=== PATIENT | male | born 1965 | race Caucasian/White ===

== ENCOUNTER 2016-09-01 21:06 | Emergency (ER) | payer SELFPAY ==
[~2016-09-01] VITALS: Ht 167.6 cm; Wt 70.1 kg
[~2016-09-01 21:06] MED LIST: CEPH500C3 PO; HYDR-3534 PO
[2016-09-01 21:09] VITALS: BP 102/70; PULSE 91; RESP 20; TEMP 97.7; O2SAT 95
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
[2016-09-01] MEDS ORDERED: LIDOCAINE 1%/EPINEPHrine 1:100,000 SOLN 20 ML VIAL INFIL ONE (21:30)
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
== END 2016-09-01 22:49 | disposition home or self-care (01) ==
LOC: PHEFT 21:06
DX: S01.411A Laceration without foreign body of right cheek and temporomandibular area, initial encounter (principal); F17.200 Nicotine dependence, unspecified, uncomplicated; Z86.69 Personal history of other diseases of the nervous system and sense organs; Z86.59 Personal history of other mental and behavioral disorders; W25.XXXA Contact with sharp glass, initial encounter
CPT/HCPCS: 12011; 70140

== ENCOUNTER 2016-10-14 14:11 | Emergency (ER) | payer SELFPAY ==
[~2016-10-14] VITALS: Ht 185.4 cm; Wt 75.0 kg
[2016-10-14 16:20] VITALS: BP 113/63; PULSE 77; RESP 16; TEMP 98; O2SAT 99
[2016-10-14 16:34] VITALS: BP 109/68; PULSE 69; RESP 16; O2SAT 98
[2016-10-14] MEDS ORDERED: SODIUM CHLORIDE 0.9% FLUSH 5 ML FLUSH IVF PRN (16:45)
[2016-10-14 17:23] LABS: AUTOMATED NEUTROPHIL # 5.1 TH/MM3 (1.8-7.7); BASOPHIL % 0.3 % (0.0-2.0); EOSINOPHIL % 0.3 % (0.0-4.0); HEMATOCRIT 46.4 % (39.0-51.0); HEMO FLAGS DIFF FINAL; LYMPH % 22.7 % (9.0-44.0); LYMPHOCYTE # 1.6 TH/MM3 (1.0-4.8); MEAN CELL VOLUME 91.4 FL (80.0-100.0); MEAN CORPUSCULAR HEMOGLOBIN 31.8 PG (27.0-34.0); MEAN CORPUSCULAR HGB CONC 34.8 % (32.0-36.0); MONO % 4.9 % (0.0-8.0); NEUT % 71.8 % (16.0-70.0); PLATELET COUNT 292 TH/MM3 (150-450); RED BLOOD COUNT 5.08 MIL/MM3 (4.50-5.90); RED CELL DISTRIBUTION WIDTH 13.6 % (11.6-17.2); WHITE BLOOD COUNT 7.1 TH/MM3 (4.0-11.0)
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
--- NOTE | 2016-10-14 17:32 | RADRPT ---
EXAM DATE/TIME: 10/14/2016 16:35 [facility] COMPARISON: No previous studies available for comparison. INDICATIONS : Chest Pain MEDICAL HISTORY : None. SURGICAL HISTORY : None. ENCOUNTER: Initial ACUITY: 1 day PAIN SCORE: 5/10 LOCATION: Bilateral chest FINDINGS: A single view of the chest demonstrates the lungs to be symmetrically aerated without evidence of mas s, infiltrate or effusion. The cardiomediastinal contours are unremarkable. Osseous structures are intact. CONCLUSION: No acute disease. Brett Medrano MD on October 14, 2016 at 17:30 Board Certified Radiologist. This report was verified electronically.
[2016-10-14 17:38] LABS: APTT (PATIENT) 23.9 SEC (24.3-30.1); PROTHROMBIN TIME - PATIENT 11.4 SEC (9.8-11.6)
[2016-10-14 17:41] LABS: ANION GAP 6 MEQ/L (5-15); BICARBONATE 30.8 MEQ/L (21.0-32.0); BLOOD UREA NITROGEN 11 MG/DL (7-18); CHLORIDE 103 MEQ/L (98-107); GLOMERULAR FILTRATION RATE 78 ML/MIN (>89); MAGNESIUM 2.1 MG/DL (1.5-2.5); POTASSIUM 4.2 MEQ/L (3.5-5.1); SODIUM (NA) 140 MEQ/L (136-145)
[2016-10-14 17:45] LABS: CREATINE KINASE 108 U/L (39-308)
[2016-10-14 17:58] LABS: CKMB 0.6 NG/ML (0.5-3.6)
--- NOTE | 2016-10-14 18:22 | RADRPT ---
EXAM DATE/TIME: 10/14/2016 17:14 [facility] COMPARISON: No previous studies available for comparison. INDICATIONS : Trauma; fall. RADIATION DOSE: 41.13 CTDIvol (mGy) MEDICAL HISTORY : Cerebrovascular disease. Hypertension. SURGICAL HISTORY : None. ENCOUNTER: Initial ACUITY: 1 day PAIN SCALE: 5/10 LOCATION: cranial TECHNIQUE: Multiple contiguous axial images were obtained of the head. Using automated exposure control and adj ustment of the mA and/or kV according to patient size, radiation dose was kept as low as reasonably a chievable to obtain optimal diagnostic quality images. FINDINGS: CEREBRUM: The ventricles are normal for age. No evidence of midline shift, mass lesion, hemorrhage or acute in farction. No extra-axial fluid collections are seen. POSTERIOR FOSSA: The cerebellum and brainstem are intact. The 4th ventricle is midline. The cerebellopontine angle i s unremarkable. EXTRACRANIAL: The visualized portion of the orbits is intact. SKULL: The calvaria is intact. No evidence of skull fracture. CONCLUSION: Normal examination. Brett Medrano MD on October 14, 2016 at 18:19 Board Certified Radiologist. This report was verified electronically.
[2016-10-14] MEDS ORDERED: IOHEXOL 350 MG/ML 10 ML VIAL (for RAD DIAG) IV ONE (18:31)
--- NOTE | 2016-10-14 18:45 | RADRPT ---
EXAM DATE/TIME: 10/14/2016 18:09 [facility] COMPARISON: No previous studies available for comparison. INDICATIONS : Short of breath. IV CONTRAST: 60 cc Omnipaque 350 (iohexol) IV RADIATION DOSE: 6.42 CTDIvol (mGy) MEDICAL HISTORY : Cerebrovascular disease. Hypertension. SURGICAL HISTORY : None. ENCOUNTER: Initial ACUITY: 1 day PAIN SCALE: 4/10 LOCATION: chest TECHNIQUE: Volumetric scanning of the chest was performed using a pulmonary embolism protocol MIP images were re constructed. Using automated exposure control and adjustment of the mA and/or kV according to patien t size, radiation dose was kept as low as reasonably achievable to obtain optimal diagnostic quality images. FINDINGS: PULMONARY ARTERIES: No filling defects are seen in the pulmonary arteries through the segmental level. LUNGS: There is no consolidation or pneumothorax . No concerning pulmonary nodule is visualized. PLEURAE: There is no pleural thickening or pleural effusion. MEDIASTINUM: There is good visualization of the great vessels of the middle mediastinum. No evidence of mediastin al or hilar adenopathy/mass. MUSCULOSKELETAL: Within normal limits for patient age. MISCELLANEOUS: The visualized upper abdominal organs demonstrate no acute abnormality. CONCLUSION: 1. Negative for pulmonary embolus. Mild emphysema. Brett Medrano MD on October 14, 2016 at 18:42 Board Certified Radiologist. This report was verified electronically.
[2016-10-14 18:58] VITALS: BP 105/71
--- NOTE | 2016-10-15 14:31 | EKG ---
Date Performed: 10/14/2016 Time Performed: 16:26:49 PTAGE: 51 years EKG: Sinus rhythm NORMAL ECG PREVIOUS TRACING : 04/02/2008 02.26 DOCTOR: Nikita Soni Interpretating Date/Time 10/15/2016 14:28:22
== END 2016-10-14 19:07 | disposition home or self-care (01) ==
LOC: NEDAMB 14:11 → NEPC 19:07
DX: R55 Syncope and collapse (principal); S01.01XA Laceration without foreign body of scalp, initial encounter; R07.9 Chest pain, unspecified; F17.210 Nicotine dependence, cigarettes, uncomplicated; Z86.73 Personal history of transient ischemic attack (TIA), and cerebral infarction without residual deficits
CPT/HCPCS: 12002; 70450; 71010; 71275; 80048; 82550; 82552; 83735; 84484; 85025; 85379; 85610; 85730; 93005; 99285; Q9967

== ENCOUNTER 2017-02-11 10:55 | Emergency (ER) | payer SELFPAY ==
[~2017-02-11] VITALS: Ht 185.4 cm; Wt 80.0 kg
[2017-02-11 10:59] VITALS: BP 119/62; PULSE 104; RESP 16; TEMP 98.2; O2SAT 99
[2017-02-11 11:10] VITALS: BP 110/77; PULSE 86; RESP 16; O2SAT 98
[2017-02-11] MEDS ORDERED: LIDOCAINE HCL 1% 50 ML VIAL INFIL ONE (11:15)
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
[2017-02-11] MEDS ORDERED: IBUP-232 PO (11:35)
[2017-02-11] MEDS ORDERED: FLUT1SPR5 EACH NARE (11:35)
[2017-02-11] MEDS ORDERED: AUGM875T3 PO (11:35)
== END 2017-02-11 12:43 | disposition home or self-care (01) ==
LOC: NEPD 10:55
DX: S81.811A Laceration without foreign body, right lower leg, initial encounter (principal); Z86.73 Personal history of transient ischemic attack (TIA), and cerebral infarction without residual deficits; F17.210 Nicotine dependence, cigarettes, uncomplicated; W26.9XXA Contact with unspecified sharp object(s), initial encounter; Y93.9 Activity, unspecified; Y92.007 Garden or yard of unspecified non-institutional (private) residence as the place of occurrence of the external cause; Y99.8 Other external cause status
CPT/HCPCS: 12002

== ENCOUNTER 2017-02-18 02:52 | Emergency (ER) | payer SELFPAY ==
[~2017-02-18] VITALS: Ht 185.4 cm; Wt 79.0 kg
[2017-02-18 02:56] VITALS: BP 113/71; PULSE 90; RESP 16; TEMP 97.6; O2SAT 98
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
[2017-02-18] MEDS ORDERED: CEPHALEXIN MONOHYDRATE 500 MG CAP PO ONE (04:45)
[2017-02-18] MEDS ORDERED: BACT800T5 PO (05:22)
[2017-02-18] MEDS ORDERED: CEPH-460 PO (05:22)
== END 2017-02-18 05:35 | disposition home or self-care (01) ==
LOC: NEPC 02:52
DX: T81.4XXA Infection following a procedure, initial encounter (principal); F41.9 Anxiety disorder, unspecified; F17.200 Nicotine dependence, unspecified, uncomplicated; Z86.73 Personal history of transient ischemic attack (TIA), and cerebral infarction without residual deficits
CPT/HCPCS: 99284

== ENCOUNTER 2017-02-19 07:15 | Emergency (ER) | payer SELFPAY ==
[~2017-02-19] VITALS: Ht 185.4 cm; Wt 78.0 kg
[~2017-02-19 07:15] MED LIST changes: +BACT800T5 PO; +CEPH-460 PO; -CEPH500C3 PO; -HYDR-3534 PO
[2017-02-19 07:16] VITALS: BP 125/75; PULSE 75; RESP 15; TEMP 98.3; O2SAT 98
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
== END 2017-02-19 07:55 | disposition home or self-care (01) ==
LOC: NEPE 07:15
DX: S81.811D Laceration without foreign body, right lower leg, subsequent encounter (principal); W26.9XXD Contact with unspecified sharp object(s), subsequent encounter; Y92.007 Garden or yard of unspecified non-institutional (private) residence as the place of occurrence of the external cause
CPT/HCPCS: 99281

== ENCOUNTER 2017-05-22 14:26 | Emergency (ER) | payer SELFPAY ==
[~2017-05-22] VITALS: Ht 185.4 cm; Wt 65.9 kg
[2017-05-22 14:28] VITALS: BP 120/67; PULSE 103; RESP 15; TEMP 98.5; O2SAT 96
[2017-05-22] MEDS ORDERED: LIDOCAINE HCL 1% 50 ML VIAL INFIL ONE (14:45)
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
== END 2017-05-22 15:24 | disposition home or self-care (01) ==
LOC: PHEFT 14:26
DX: S61.412A Laceration without foreign body of left hand, initial encounter (principal); W26.9XXA Contact with unspecified sharp object(s), initial encounter; Y99.0 Civilian activity done for income or pay; Z86.73 Personal history of transient ischemic attack (TIA), and cerebral infarction without residual deficits; H91.90 Unspecified hearing loss, unspecified ear; F17.210 Nicotine dependence, cigarettes, uncomplicated
CPT/HCPCS: 12002

== ENCOUNTER 2017-09-25 08:58 | Emergency (ER) | payer SELFPAY ==
[~2017-09-25] VITALS: Ht 185.4 cm; Wt 70.0 kg
[2017-09-25 09:02] VITALS: BP 102/52; PULSE 85; RESP 16; TEMP 98.5; O2SAT 98
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
[2017-09-25] MEDS ORDERED: cefTRIAXone INJ 1,000 MG in SODIUM CHLORIDE 0.9% INJ 100 ML IV ONE (09:30)
[2017-09-25] MEDS ORDERED: SODIUM CHLORIDE 0.9% FLUSH 10 ML FLUSH IVF PRN (09:30)
[2017-09-25] MEDS ORDERED: KETOROLAC TROMETHAMINE 30 MG/ML (IVP) VIAL IVP ONE (09:30)
[2017-09-25 09:55] LABS: BILIRUBIN, URINE NEG (NEG); BLOOD, URINE NEG (NEG); GLUCOSE,URINE NEG (NEG); KETONE, URINE NEG (NEG); NITRITE,URINE NEG (NEG); PH, URINE 5.5 (5.0-8.5); URINE LEUKOCYTE ESTERASE NEG (NEG)
[2017-09-25 09:56] LABS: AUTOMATED NEUTROPHIL # 8.8 TH/MM3 (1.8-7.7); BASOPHIL % 0.3 % (0.0-2.0); EOSINOPHIL % 0.4 % (0.0-4.0); HEMATOCRIT 40.5 % (39.0-51.0); HEMOGLOBIN 13.5 GM/DL (13.0-17.0); LYMPH % 12.1 % (9.0-44.0); LYMPHOCYTE # 1.3 TH/MM3 (1.0-4.8); MEAN CELL VOLUME 92.6 FL (80.0-100.0); MEAN CORPUSCULAR HEMOGLOBIN 30.8 PG (27.0-34.0); MEAN CORPUSCULAR HGB CONC 33.3 % (32.0-36.0); MEAN PLATELET VOLUME 6.2 FL (7.0-11.0); MONO % 5.8 % (0.0-8.0); MONOCYTE # 0.6 TH/MM3 (0-0.9); NEUT % 81.4 % (16.0-70.0); PLATELET COUNT 284 TH/MM3 (150-450); RED BLOOD COUNT 4.37 MIL/MM3 (4.50-5.90); WHITE BLOOD COUNT 10.6 TH/MM3 (4.0-11.0)
[2017-09-25 09:59] VITALS: BP 104/59; PULSE 71; RESP 17; O2SAT 97
[2017-09-25] MEDS ORDERED: SODIUM CHLOR 0.9% 1000 ML INJ 1,000 ML IV ONE (10:00)
[2017-09-25 10:07] LABS: BICARBONATE 28.2 MEQ/L (21.0-32.0); CALCIUM 8.7 MG/DL (8.5-10.1)
[2017-09-25 10:09] LABS: AMORPHOUS SEDIMENT, URINE FEW; SQUAMOUS EPITHELIAL CELL URINE 0-5 /hpf (0-5); URINE COLOR YELLOW (YELLW/STRAW)
[2017-09-25 10:11] LABS: CREATININE 0.89 MG/DL (0.60-1.30)
--- NOTE | 2017-09-25 10:11 | RADRPT ---
EXAM DATE/TIME: 09/25/2017 09:33 [place] COMPARISON: No previous studies available for comparison. INDICATIONS : Right testicular pain. MEDICAL HISTORY : Traumatic head injury. CVA. Tobacco use. Anxiety. SURGICAL HISTORY : Left thumb surgery. Right hand tendon repair. ENCOUNTER: Initial ACUITY: 2 weeks PAIN SCORE: 10/10 LOCATION: Bilateral scrotum. MEASUREMENTS: RIGHT TESTICLE: 4.0 x 3.2 x 2.9cm LEFT TESTICLE: 4.4 x 2.8 x 2.7cm FINDINGS: RIGHT TESTICLE: Homogeneous echotexture without intra or extratesticular mass. There is increased blood flow and hype remia to the right testicle compared to the left. No hydrocele, there are small varices. Epididymis is within normal limits. LEFT TESTICLE: Homogeneous echotexture without intra or extratesticular mass. The blood flow is less than on the lef t but felt to be within normal limits. No hydrocele.Epididymis is within normal limits. There are sm all varices. SCROTUM: Within normal limits. CONCLUSION: 1. There is asymmetric increased blood flow to the right testicle compared to the left with no focal abnormality. This is consistent with hyperemia and could be secondary to infection or inflammatory ch paresh. 2. Small bilateral varices. Jhony Park MD on September 25, 2017 at 10:01 Board Certified Radiologist. This report was verified electronically.
[2017-09-25] MEDS ORDERED: TRAM50 PO (10:26)
[2017-09-25] MEDS ORDERED: DOXY100C PO (10:26)
[2017-09-25 10:31] VITALS: BP 102/57; PULSE 66; RESP 16; O2SAT 97
[2017-09-25] MEDS ORDERED: diphenhydrAMINE HCL 50 MG/ML VIAL IV PUSH ONE (11:00)
[2017-09-25] MEDS ORDERED: CIPR-9 PO (11:58)
== END 2017-09-25 11:25 | disposition home or self-care (01) ==
LOC: PHED 08:58
DX: N45.1 Epididymitis (principal); N50.811 Right testicular pain; F17.200 Nicotine dependence, unspecified, uncomplicated
CPT/HCPCS: 76870; 80048; 81001; 85025; 87491; 87591; 93975; 96365; 96375; 99284; J0696; J1200; J1885; J7030

== ENCOUNTER 2018-02-18 16:06 | Emergency (ER) | payer SELFPAY ==
[~2018-02-18] VITALS: Ht 185.4 cm; Wt 75.0 kg
[~2018-02-18 16:06] MED LIST changes: -BACT800T5 PO; -CEPH-460 PO; +CIPR-9 PO; +DOXY100C PO; +TRAM50 PO
[2018-02-18 16:10] VITALS: BP 110/52; PULSE 94; RESP 16; TEMP 98.6; O2SAT 96
--- NOTE | 2018-02-18 16:51 | RADRPT ---
EXAM DATE: 02/18/2018 4:45 PM EDT AGE/SEX: 52 years / Male INDICATIONS: Swelling in right knee, possible infection. CLINICAL DATA: This is the patient's initial encounter. Patient reports that signs and symptoms have been present for 1 day and indicates a pain score of 8/10. MEDICAL/SURGICAL HISTORY: None. None. COMPARISON: No prior exams available for comparison. FINDINGS: Bony structures are intact and in normal alignment. Joints are intact without dislocation or signifi cant arthropathy. Osseous density is normal. Prominent infrapatellar soft tissues. No radiopaque for eign bodies seen. CONCLUSION: 1. Prominent infrapatellar soft tissues without radiopaque foreign bodies or subcutaneous emphysema. 2. No erosive bony change or acute fracture. Electronically signed by: Jalen Cheema MD 02/18/2018 4:50 PM EDT
[2018-02-18] MEDS ORDERED: LIDOCAINE 1%/EPINEPHrine 1:100,000 SOLN 30 ML VIAL ONE (19:09)
[2018-02-18] MEDS ORDERED: SULFAMETHOXAZOLE-TRIMETHOPRIM DS 800-160 MG TAB PO ONE (19:15)
[2018-02-18] MEDS ORDERED: LIDOCAINE 1%/EPINEPHrine 1:100,000 SOLN 20 ML VIAL INFIL ONE (19:15)
[2018-02-18] MEDS ORDERED: ACETAMINOPHEN/HYDROcodone 325 MG/5 MG TAB PO ONE (19:15)
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
[2018-02-18] MEDS ORDERED: IBUP-232 PO (21:10)
[2018-02-18] MEDS ORDERED: BACT800T5 PO (21:10)
== END 2018-02-18 22:00 | disposition home or self-care (01) ==
LOC: NEPE 16:06
DX: L02.415 Cutaneous abscess of right lower limb (principal); B95.62 Methicillin resistant Staphylococcus aureus infection as the cause of diseases classified elsewhere; W01.0XXA Fall on same level from slipping, tripping and stumbling without subsequent striking against object, initial encounter; F41.9 Anxiety disorder, unspecified; F17.210 Nicotine dependence, cigarettes, uncomplicated; Z86.73 Personal history of transient ischemic attack (TIA), and cerebral infarction without residual deficits; Z88.1 Allergy status to other antibiotic agents; Z88.5 Allergy status to narcotic agent
CPT/HCPCS: 10060; 73564; 86403; 87070; 87186; 87205

== ENCOUNTER 2018-04-08 10:34 | Inpatient (IN) ==
--- NOTE | 2018-04-08 11:22 | ED ---
HPI General Chief complaint: Skin/Abscess/Foreign Body Stated complaint: right hand swollen Time Seen by Provider: 04/08/18 11:00 Source: patient Mode of arrival: ambulatory Limitations: no limitations History of Present Illness HPI narrative: Patient is a 52-year-old male presenting to the emergency department for evaluation of right hand pain and swelling. Patient states it started 3 days ago, he reports his pain is a 10 out of 10, constant, aching and throbbing in nature. He reports subjective fevers but denies any nausea, vomiting, chest pain, shortness of breath. Patient denies any IV drug use. He states his tetanus vaccine is up-to-date. Symptom onset was gradual, symptoms are moderate in nature. No alleviating factors. Pain is worse with movement and palpation. MD complaint: abscess/boil and discoloration Onset (ago): day(s) (3) Tetanus Immunization: <5 Years Location: R hand Severity: severe Severity scale (1-10): >10 Quality: aching and constant Pain Consistency: constant Relieving factors: none Exacerbating factors: palpation and movement Context: none Associated symptoms: fever, chills, arthralgias and myalgias Treatments prior to arrival: none Related Data Home Medications Medication Instructions Recorded Confirmed No Known Home Medications 04/08/18 04/08/18 Allergies Allergy/AdvReac Type Severity Reaction Status Date / Time ceftriaxone Allergy Intermediate Itching Verified 09/25/17 11:25 codeine Allergy Mild ITCH Verified 09/25/17 09:25 aspirin AdvReac Mild HEART Verified 09/25/17 09:25 FLUTTERS Review of Systems ROS: all other systems reviewed are negative [facility] Medical History Medical History Hernia (Acute) Social History Social History Second Hand Smoke Exposure: No Smoking Status: Current every day smoker Tobacco Type: Cigarettes How Often Do You Have a Drink Containing Alcohol: Never Recent Travel in [facility] within the Last 8 Weeks: No Recent Out of Country Travel within the Last 8 Weeks: No Immunization History Tetanus Immunization: <5 Years Exam Narrative Exam Narrative: GENERAL: Thin, well-developed, alert male. Presenting in no acute distress. SKIN: Focused skin assessment warm/dry. Edema and erythema noted to the right hand and wrist on the dorsal aspect, significantly tender to palpation. HEAD: Atraumatic. Normocephalic. EYES: Pupils equal and round. No scleral icterus. No injection or drainage. ENT: No nasal bleeding or discharge. Mucous membranes pink and moist. NECK: Trachea midline. No JVD. CARDIOVASCULAR: Regular rate and rhythm. No murmur appreciated. 2+ radial pulse, brisk less than 3 second capillary refill. RESPIRATORY: No accessory muscle use. Clear to auscultation. Breath sounds equal bilaterally. GASTROINTESTINAL: Abdomen soft, non-tender, nondistended. Hepatic and splenic margins not palpable. MUSCULOSKELETAL: No obvious deformities. No clubbing. No cyanosis. No edema. Pain with passive flexion of fingers radiating to forearm. NEUROLOGICAL: Awake and alert. No obvious cranial nerve deficits. Motor grossly within normal limits. Normal speech. PSYCHIATRIC: Appropriate mood and affect; insight and judgment normal. Course Initial Documented Vital Signs Temperature 98.3 F 04/08/18 10:40 Pulse Rate 112 H 04/08/18 10:40 Respiratory Rate 18 04/08/18 10:40 Blood Pressure 122/59 L 04/08/18 10:40 Pulse Oximetry 98 04/08/18 10:40 Last Documented Vital Signs Temperature 98.3 F 04/08/18 10:40 Pulse Rate 112 H 04/08/18 10:40 Respiratory Rate 18 04/08/18 10:40 Blood Pressure 122/59 L 04/08/18 10:40 Pulse Oximetry 98 04/08/18 10:40 Medical Decision Making MARY Attestation MARY supervised visit: Yes Attestation: I, Dr. Rodriguez, have reviewed the advance practice practitioner's documentation and am in agreement, met with the patient face to face, made the diagnosis, and the medical decision making was done by me. 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 He has physical exam findings concerning for flexor tenosynovitis involving the third finger on the right side. Based on exam there is some concern or suspicion for IV drug abuse. Patient will be admitted for IV antibiotics and hand surgery consultation. Clindamycin started. Plain film reviewed: no sign of subcutaneous air. [facility] Narrative Medical decision making narrative: Patient is a 52-year-old male presented to emerge from for evaluation of right hand pain and swelling. Patient is neurovascularly intact. Labs imaging ordered and pending. Labs reviewed, CRP is elevated at 4.40. X-ray shows diffuse soft tissue swelling. Discussed findings with my attending physician as well as Dr. Sushma Penn, hand surgeon. She requested an MRI be obtained the patient be kept n.p.o. possible OR this afternoon. Orders placed. Patient is agreeable to plan. He was started on clindamycin empirically. Differential Diagnosis Differential Diagnosis: Cellulitis versus abscess versus tenosynovitis versus other Medical Records Medical records reviewed: Yes I reviewed the patient's medical records. Lab Data Lab results reviewed: Yes I reviewed the patient's lab results. Result diagrams: 04/08/18 11:20 04/08/18 11:20 Lab Results 04/08/18 04/08/18 04/08/18 Range/Units 11:20 11:20 11:20 WBC 9.9 (4.0-11.0) th/mm3 RBC 4.23 L (4.50-5.90) mil/mm3 Hgb 13.3 (13.0-17.0) gm/dL Hct 39.3 (39.0-51.0) % MCV 92.9 (80.0-100.0) fL MCH 31.4 (27.0-34.0) pg MCHC 33.8 (32.0-36.0) % RDW 13.7 (11.6-17.2) % Plt Count 278 (150-450) th/mm3 MPV 6.7 L (7.0-11.0) fL Neut % (Auto) 80.6 H (16.0-70.0) % Lymph % (Auto) 12.6 (9.0-44.0) % [place] % (Auto) 6.3 (0.0-8.0) % Eos % (Auto) 0.3 (0.0-4.0) % Baso % (Auto) 0.2 (0.0-2.0) % Neut # (Auto) 8.0 H (1.8-7.7) th/mm3 Lymph # (Auto) 1.3 (1.0-4.8) th/mm3 [place] # (Auto) 0.6 (0.0-0.9) th/mm3 Eos # (Auto) 0.0 (0.0-0.4) th/mm3 Baso # (Auto) 0.0 (0.0-0.2) th/mm3 WBC Differential . Differential Comment Auto diff final ESR 15 (0-20) mm/hr Sodium 140 (136-145) meq/L Potassium 3.7 (3.5-5.1) meq/L Chloride 105 (98-107) meq/L Carbon Dioxide 27.8 (21.0-32.0) meq/L Anion Gap 7 (5-15) meq/L BUN 17 (7-18) mg/dL Creatinine 0.89 (0.60-1.30) mg/dL Estimated GFR Greater than 89 (>89) mL/min Random Glucose 100 (74-106) mg/dL Calcium 8.5 (8.5-10.1) mg/dL Total Bilirubin 0.6 (0.2-1.0) mg/dL AST 14 L (15-37) U/L ALT 15 (12-78) U/L Alkaline Phosphatase 59 (45-117) U/L C-Reactive Protein 4.40 H (0.00-0.30) mg/dL Total Protein 6.6 (6.4-8.2) g/dL Albumin 3.3 L (3.4-5.0) g/dL Imaging Data Radiologist's impression: Hand X-Ray 04/08/18 11:05 CONCLUSION: Soft tissue swelling. No definite acute bony injury. Discharge Plan Discharge Disposition Patient Disposition: 30 Still Patient Discharge Condition Condition: Stable Discharge Details Diagnosis: Tenosynovitis Physicians Team ED Provider: Leroy Rodriguez ED Midlevel Provider: Chayo Han Primary Care Provider: Primary Care Felipa Naranjo Rxs /Orders / Referrals /Forms Prescriptions: No Action No Known Home Medications RF: 0 Discharge Interventions Interventions: Vital Signs Last Done: 04/08/18 10:40 Status ED Status: Admitted Patient
--- NOTE | 2018-04-08 11:28 | XR ---
EXAM DATE: 04/08/2018 11:25 AM EDT AGE/SEX: 52 years / Male INDICATIONS: Right hand swelling. CLINICAL DATA: This is the patient's initial encounter. Patient reports that signs and symptoms have been present for 3 days and indicates a pain score of 10/10. MEDICAL/SURGICAL HISTORY: None. None. COMPARISON: No prior exams available for comparison. FINDINGS: There is slight curvature in bony deformity of the fifth metacarpal which looks like an old healed nehemiah xers type injury. No definite evidence of acute fracture or dislocation. Moderate soft tissue swellin g, mainly dorsal. CONCLUSION: Soft tissue swelling. No definite acute bony injury. Electronically signed by: Vicente Butcher MD 04/08/2018 11:27 AM EDT
[2018-04-08 11:46] LABS: Baso % (Auto) 0.2 % (0.0-2.0); Eos % (Auto) 0.3 % (0.0-4.0); Hematocrit 39.3 % (39.0-51.0); Hemoglobin 13.3 gm/dL (13.0-17.0); Lymph # (Auto) 1.3 th/mm3 (1.0-4.8); Lymph % (Auto) 12.6 % (9.0-44.0); Mean Corpuscular HGB Conc 33.8 % (32.0-36.0); Mean Corpuscular Hemoglobin 31.4 pg (27.0-34.0); Mean Corpuscular Volume 92.9 fL (80.0-100.0); Mean Platelet Volume 6.7 fL (7.0-11.0); Mono # (Auto) 0.6 th/mm3 (0.0-0.9); Mono % (Auto) 6.3 % (0.0-8.0); Neut % (Auto) 80.6 % (16.0-70.0); Platelet Count 278 th/mm3 (150-450); Red Blood Count 4.23 mil/mm3 (4.50-5.90); Red Cell Distribution Width 13.7 % (11.6-17.2); White Blood Count 9.9 th/mm3 (4.0-11.0)
[2018-04-08] MEDS ORDERED: Lidocaine PF 1% Inj 5 ML Syringe INFILTRATN ONE (12:00)
[2018-04-08 12:16] LABS: Albumin 3.3 g/dL (3.4-5.0); Anion Gap 7 meq/L (5-15); Aspartate Aminotransferase 14 U/L (15-37); Blood Urea Nitrogen 17 mg/dL (7-18); Calcium 8.5 mg/dL (8.5-10.1); Carbon Dioxide 27.8 meq/L (21.0-32.0); Chloride 105 meq/L (98-107); Glomerular Filtration Rate Greater Than 89 mL/min (>89); Glucose,Random 100 mg/dL (74-106); Potassium 3.7 meq/L (3.5-5.1); Sodium 140 meq/L (136-145)
[2018-04-08 12:18] LABS: Alanine Aminotransferase 15 U/L (12-78)
[2018-04-08 12:19] LABS: Alkaline Phosphatase 59 U/L (45-117); Total Protein 6.6 g/dL (6.4-8.2)
[2018-04-08] MEDS ORDERED: Clindamycin 900 mg/NS Premix 900 MG/50 ML PIGGYBACK IV.SIG ONE (12:53)
[2018-04-08] MEDS ORDERED: Acetaminophen 325 MG Tablet PO PRN (14:05)
[2018-04-08] MEDS: Sod Chloride 0.9% Inj 1,000 ML IV.CONT SCH (14:35)
[2018-04-08] MEDS: Ciprofloxacin 400 MG/200 ML 400 MG/200 ML PIGGYBACK IV.SIG SCH (14:36)
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
[2018-04-08] MEDS ORDERED: Gadobutrol PF 7.5 MMOL/7.5 ML Vial (for RAD) IV.SIG ONE (16:36)
[2018-04-08] MEDS ORDERED: Chlorhexidine Gluconate 2% 1 Pack (2 Cloths) TOPICAL SCH (20:15)
[2018-04-08] MEDS: Clindamycin 600 mg/NS Premix 600 MG/50 ML PIGGYBACK IV.SIG SCH (20:18)
[2018-04-08] MEDS ORDERED: Lidocaine PF 2% Inj 10 ML Ampul ONE (20:48)
[2018-04-08] MEDS ORDERED: Sodium Chlor 0.9% Inj 500 ML IV.SIG SCH (21:00)
[2018-04-08] MEDS ORDERED: fentaNYL Citrate Inj 250 MCG/5 ML Ampul ONE (21:11)
[2018-04-08] MEDS: Neomycin/Polymyxin G.U. Irrigant 1 ML Ampul ONE (21:42)
[2018-04-08] MEDS ORDERED: *Meperidine Inj 25 MG/ML Vial PERIprocedural Use ONLY ONE (22:39)
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
[2018-04-09] MEDS: Sod Chloride 0.9% Inj 1,000 ML IV.CONT SCH ×2 (01:57→12:51)
[2018-04-09] MEDS: Ciprofloxacin 400 MG/200 ML 400 MG/200 ML PIGGYBACK IV.SIG SCH (03:07)
[2018-04-09] MEDS: Clindamycin 600 mg/NS Premix 600 MG/50 ML PIGGYBACK IV.SIG SCH ×2 (04:24→12:51)
[2018-04-09] MEDS: Neomycin/Polymyxin G.U. Irrigant 1 ML Ampul ONE (06:10)
[2018-04-09 07:58] VITALS: RESP 18
--- NOTE | 2018-04-09 08:48 | ECG ---
Date Performed: 04/08/2018 Time Performed: 20:36:24 PTAGE: 52 years EKG: Sinus rhythm NORMAL ECG PREVIOUS TRACING : 10/14/2016 16.26 No significant change from previous tracing noted. DOCTOR: Carlos Alberto Miller Interpretating Date/Time 04/09/2018 08:46:57
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
[2018-04-09 12:54] VITALS: BP 115/60; PULSE 103; TEMP 98.7; O2SAT 99
[2018-04-09] MEDS ORDERED: Ciprofloxacin 500 MG Tablet PO SCH (21:00)
== END 2018-04-09 14:40 | disposition home or self-care (01) ==
LOC: NEPE 10:34 → NEDA 13:45 → NEPFCDU 16:51
PROVIDERS: ADMIT Hospitalist; ATTEND Hospitalist